=== PATIENT | female | born 1985 | race Caucasian/White ===

== ENCOUNTER 2017-02-12 13:49 | Emergency (ER) | payer OTHER ==
[~2017-02-12] VITALS: Ht 160 cm; Wt 55.3 kg
[2017-02-12 14:21] VITALS: BP 110/74
[2017-02-12] MEDS ORDERED: CEPHALEXIN500 M3 PO (14:56)
--- NOTE | 2017-02-12 15:00 | ED GI/GU/ABDOMINAL COMPLAINT ---
History of Present Illness General Chief Complaint: Female Urogenital Problems Stated Complaint: 17 WEEKS ,C/O LIGHT BLEEDING Source: patient Exam Limitations: no limitations Vital Signs & Intake/Output Vital Signs & Intake/Output Vital Signs Date Time Temp Pulse Resp B/P B/P Pulse O2 O2 Flow FiO2 Mean Ox Delivery Rate 02/12 1421 98.0 80 20 110/74 99 Room Air Allergies Coded Allergies: No Known Drug Allergies (Intermediate, NONE 02/12/17) Reconcile Medications Cephalexin 500 MG CAPSULE 1 CAP PO BID ANTIBIOTIC, INFECTION (Reported) Triage Note: C/O VAGINAL SPOTTING TODAY, STATES SHE IS 17 WEEKS , HERE VISITING FROM [place]. STATES SHE WAS SWIMMING [facility] SPOTTING STARTED. DENIES LOWER ABDOMINAL PAIN OR CRAMPING. Triage Nurses Notes Reviewed? yes ? Y Is pt currently ? No Duration: better Timing: single episode today Quality/Severity: mild Severity Numbers: 1 Radiation: no radiation Activities at Onset: none HPI: Patient is a 31-year-old female who is a approximately 15 weeks with multiple confirmed ultrasound showing intrauterine who currently states that she is being treated with a urinary tract infection with cephalexin who states that she was in her normal state of health today while swimming in a pool she noted upon changing that she had a minimal amount of blood on her bathing suit where she is concerned of a threatened where patient does have a history thereof from previous . Patient states that the urine infection symptoms have significantly improved. Patient lives in [place] Patient denies any fever chills nausea vomiting abdominal pain dysuria hematuria. Patient denies any active vaginal bleeding or discharge. Patient denies any trauma (MEGGAN ELDER) Past History Travel History Traveled to [place] past 21 day No Medical History Any Pertinent Medical History? none Neurological: NONE EENT: NONE Cardiovascular: NONE Respiratory: NONE Gastrointestinal: NONE Hepatic: NONE Renal: NONE Musculoskeletal: NONE Psychiatric: NONE Endocrine: NONE Surgical History Surgical History: Psychosocial History What is your primary language Icelandic Tobacco Use: Never used ETOH Use: denies use Family History Hx Contributory? No (MEGGAN ELDER) Review of Systems Review of Systems Constitutional: Reports: no symptoms. EENTM: Reports: no symptoms. Respiratory: Reports: no symptoms. Cardiovascular: Reports: no symptoms. GI: Reports: no symptoms. Genitourinary: Reports: see HPI. Musculoskeletal: Reports: no symptoms. Skin: Reports: no symptoms. Neurological/Psychological: Reports: no symptoms. Hematologic/Endocrine: Reports: see HPI, bleeding. Immunologic/Allergic: Reports: no symptoms. All Other Systems: Reviewed and Negative (EMGGAN ELDER) Physical Exam Physical Exam General Appearance: no apparent distress, alert Gastrointestinal: normal bowel sounds, soft, non-tender Pelvic: normal external exam, normal speculum exam, normal bimanual exam, no cerv. motion tender, no masses, CERVIX CLOSED, NO ACTIVE BLEEDING NONTENDER CERVIX Comments: Well-developed well-nourished person in no acute distress HEENT: Normal EENT exam, Neck: Supple, no lymphadenopathy, normal range of motion without pain or tenderness Back: Nontender, no CVA tenderness. Cardiovascular: Regular rate and rhythms no murmurs rubs or gallops, normal JVP Respiratory: Chest nontender. No respiratory distress.breath sounds clear to auscultation bilaterally Abdomen: Soft, nontender nondistended, no appreciable organomegaly. Normal bowel sounds. No ascites Extremity: No edema, no calf tenderness to palpation, normal and equal pulses. Neuro: Alert oriented x3, motor sensory normal, Skin: No appreciable rash on exposed skin, skin is warm and dry. Psych: Mood and affect is normal, memory and judgment is normal. Core Measures ACS in differential dx? No Severe Sepsis Present: No Septic Shock Present: No (MEGGAN ELDER) Progress Differential Diagnosis: appendicitis, biliary colic, bowel obstruction, colon cancer, cholecystitis, diverticulitis, ectopic , endometritis, esophageal varices, gastritis, hepatitis, hernia, hemorrhoids, ischemic bowel, inflamm bowel dis, intrauterine , kidney stone, ovarian cyst, ovarian torsion, pancreatitis, PID/cervicitis, peptic ulcer, PUD/GERD, perforated viscous, SBO, threatened AB, UTI/pyelo Plan of Care: Orders Procedure Date/time Status Add-on Test (ER Only) 02/12 1601 Active HUMAN BETA HCG TITRE 02/12 1548 Complete PARTIAL THROMBOPLASTIN TIME 02/12 1523 Complete PROTHROMBIN TIME 02/12 1523 Complete COMPREHENSIVE METABOLIC PANEL 02/12 1523 Complete CBC WITHOUT DIFFERENTIAL 02/12 1523 Complete TYPE & SCREEN (NOT X-MATCH) 02/12 1523 Complete Laboratory Tests 02/12/17 1548: Anion Gap 11, Estimated GFR > 60, BUN/Creatinine Ratio 25.0, Glucose 85, Calcium 9.5, Total Bilirubin 0.4, AST 20, ALT 30, Alkaline Phosphatase 58, Total Protein 7.7, Albumin 4.4, Globulin 3.3, Albumin/Globulin Ratio 1.3, Beta HCG, Quant 99447.0, PT 11.1, INR 1.06, APTT 32, CBC w Diff NO MAN DIFF REQ, RBC 4.29, MCV 90.1, MCH 29.7, RDW 13.1, MPV 7.8, Gran % 75.2, Lymphocytes % 20.8, Monocytes % 3.3, Eosinophils % 0.3, Basophils % 0.4, Absolute Granulocytes 8.3 H, Absolute Lymphocytes 2.3, Absolute Monocytes 0.4, Absolute Eosinophils 0, Absolute Basophils 0, PUBS MCHC 32.9 L Patient on initial examination was in no apparent distress and had nontender abdomen. Physical exam of the region was unremarkable cervix is closed no active bleeding. Using transabdominal ultrasound performed by me there was appropriate movements heart tones were noted 160-155 BPM. Patient did not require RhoGAM and menstruation in the emergency room. Discussed disposition plan with DR. BARTON who agrees Patient was given COPIES of blood work for follow-up to [facility]. Upon discharge patient looks well no apparent distress and will comply with discharge instructions and had no questions (MEGGAN ELDER) Initial ED EKG: none (MEGGAN ELDER) Departure Departure Disposition: HOME OR SELF CARE Condition: Stable Clinical Impression Primary Impression: Vaginal bleeding in Referrals: PATIENT HAS NO PRIMARY CARE DR (PCP/Family) Additional Instructions: As discussed if symptoms worsen or if you develop any new concerning symptom return to emergency room immediately. Follow-up tomorrow with your [facility] and please provide them with the copies of blood work provided to the emergency room. Departure Forms: Customer Survey General Discharge Information (MEGGAN ELDER) PA/OILING MACHINE OPERATOR Co-Sign Statement Statement: ED Attending supervision documentation- [X] I saw and evaluated the patient. I have also reviewed all the pertinent lab results and diagnostic results. I agree with the findings and the plan of care as documented in the PA's/OILING MACHINE OPERATOR's documentation. [] I have reviewed the ED Record and agree with the PA's/OILING MACHINE OPERATOR's documentation. [] Additions or exceptions (if any) to the PAs/OILING MACHINE OPERATOR's note and plan are summarized below: [] (MARCIA BARTON DO)
[2017-02-12 16:00] LABS: ABSOLUTE BASOPHIL COUNT 0 /CUMM (0.0-0.2); ABSOLUTE EOSINOPHIL COUNT 0 /CUMM (0.0-0.7); ABSOLUTE GRANULOCYTE CT 8.3 /CUMM (1.4-6.5); ABSOLUTE LYMPH COUNT 2.3 /CUMM (1.2-3.4); ABSOLUTE MONOCYTE COUNT 0.4 /CUMM (0.10-0.60); BASOPHIL % 0.4 % (0.0-2.0); EOSINOPHIL % 0.3 % (0-5); GRANULOCYTE % 75.2 % (42.2-75.2); HEMATOCRIT 38.7 % (37-47); MEAN CORPUSCULAR HGB 29.7 PG (27.0-31.0); MEAN CORPUSCULAR HGB CONC 32.9 G/DL (33.0-37.0); MEAN CORPUSCULAR VOLUME 90.1 FL (81.0-99.0); MEAN PLATELET VOLUME 7.8 FL (7.4-10.4); PLATELET COUNT 193 /CUMM (130-400); RBC DISTRIBUTION WIDTH 13.1 % (11.5-14.5); RED BLOOD CELL CT 4.29 /CUMM (4.20-5.40); WHITE BLOOD CELL COUNT 11.1 /CUMM (4.8-10.8)
[2017-02-12 16:08] LABS: PT 11.1 SEC (9.4-12.5); PTT 32 SEC (25-37)
== END 2017-02-12 17:41 ==
LOC: ERH 13:49
PROVIDERS: Physician Assistant
DX: O20.9 Hemorrhage in early pregnancy, unspecified (principal); Z3A.15 15 weeks gestation of pregnancy